=== PATIENT | male | born 1995 | race Caucasian/White ===

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

== ENCOUNTER 2017-09-09 13:34 | Emergency (ER) | payer BC, MEDICAID ==
[2017-09-09 14:50] LABS: ABS Basophils 0 10^3/ul (0-0.2); ABS Eosinophils 0 10^3/ul (0-0.6); ABS Lymphocytes 0.7 10^3/ul (1.0-4.8); ABS Monocytes 0.3 10^3/ul (0-0.8); ABS Neutrophils 4.9 10^3/ul (1.5-7.7); ABS Nucleated RBC 0 10^3/ul; Eosinophil % 0.4 % (0-6); Hematocrit 38 % (42-52); Hemoglobin 13.5 g/dl (14.0-18.0); Lymphocyte % 11.4 % (25-47); Mean Corpuscular HGB Conc 35 g/dl (31-36); Mean Corpuscular Hemoglobin 31 pg (27-31); Mean Corpuscular Volume 89 fL (80-94); Mean Platelet Volume 7.5 um3 (7.4-10.4); Nucleated Red Blood Cells % 0; Platelet Count 127 10^3/ul (150-450); Red Blood Count 4.32 10^6/ul (4.00-5.40); Red Cell Distribution Width 13 % (10.5-15); White Blood Count 5.9 10^3/ul (3.5-10.8)
[2017-09-09 15:05] LABS: EGFR Non-African American 84.5 (>60)
[2017-09-09 15:51] LABS: Urine Appearance Clear; Urine Blood Negative (Negative); Urine Color Yellow; Urine Ketones Negative (Negative); Urine Protein 1+(30 mg/dL) (Negative); Urine Specific Gravity 1.027 (1.010-1.030); Urine Urobilinogen Positive (Negative)
[2017-09-09 16:40] VITALS: BP 102/51
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
== END 2017-09-09 16:38 | disposition home or self-care (01) ==
LOC: ED 13:34
DX: R40.0 Somnolence (principal); F12.10 Cannabis abuse, uncomplicated; F17.210 Nicotine dependence, cigarettes, uncomplicated
CPT/HCPCS: 36415; 80053; 80307; 80320; 80329; 81003; 81015; 85025; 87086; 99283; G0480

== ENCOUNTER 2018-03-31 06:42 | Emergency (ER) | payer BC, MEDICAID ==
[2018-03-31] MEDS ORDERED: Bupivacaine 0.5%* 50 ML VIAL INJ ONE (07:06)
[2018-03-31] MEDS ORDERED: Acetaminophen TAB* 325 MG PO ONE (07:06)
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
[2018-03-31] MEDS ORDERED: Bupivacaine 0.5% W/EPI SDV* 30 ML VIAL ONE (07:22)
[2018-03-31] MEDS ORDERED: Benzocaine/Butamben/Tetracain (CETACAINE - SINGLE USE) 5 gm TOPICAL ONE (07:49)
[2018-03-31 09:23] VITALS: BP 158/79
== END 2018-03-31 09:23 | disposition home or self-care (01) ==
LOC: ED 06:42
DX: K02.9 Dental caries, unspecified (principal); K08.89 Other specified disorders of teeth and supporting structures; F17.210 Nicotine dependence, cigarettes, uncomplicated
CPT/HCPCS: 96374; 99282; A9270-GY

== ENCOUNTER 2019-01-30 19:29 | Emergency (ER) | payer OTHER ==
--- NOTE | 2019-01-30 20:00 | ED ---
Abdominal Pain/Male - HPI Summary HPI Summary: Patient is a 23 y/o M presenting to the ED for a chief complaint of LLQ abdominal pain. Patient is present with his mother and father. The abdominal pain began gradually at around 14:00 on 01/30/19. On triage, patient rates the pain as 10/10 in severity. Patient admits nausea, vomiting, constipation, and hematuria. Patient denies dysuria, diarrhea, or fever. Patient denies taking any OTC medications for the pain. Patients mother states the patient had a PSHx of urology surgeries and had scar tissue from the surgeries removed by Dr. Jose Luis Akers. Allergies noted. - History of Current Complaint Chief Complaint: EDAbdPain Stated Complaint: ABDOMINAL PAIN PER EMS Time Seen by Provider: 01/30/19 19:53 Hx Obtained From: Patient, Family/Merchandise Appraiser - Mother Onset/Duration: Sudden Onset Timing: Constant Severity Initially: Severe Severity Currently: Severe Pain Intensity: 10 Pain Scale Used: 0-10 Numeric Location: Discrete At: LLQ Radiates: No Aggravating Factor(s): Nothing Alleviating Factor(s): Nothing Associated Signs And Symptoms: Positive: Constipation, Urinary Symptoms - Positive hematuria, negative dysuria, Nausea, Vomiting. Negative: Fever, Diarrhea - Allergies/Home Medications Allergies/Adverse Reactions: Allergies Allergy/AdvReac Type Severity Reaction Status Date / Time bee stings Allergy Swelling Uncoded 05/12/15 15:04 seasonal allergies Allergy Eyes Uncoded 05/12/15 15:04 Itchy/Swollen/Red/Watery Home Medications: Home Medications Buprenorphine HCl/Naloxone HCl [Buprenor-Nalox 12-3 mg Sl Film] 1 each SL BID [History Confirmed 01/30/19] PMH/Surg Hx/FS Hx/Imm Hx Previously Healthy: Yes Endocrine/Hematology History: Denies: Hx Diabetes Cardiovascular History: Denies: Hx Hypercholesterolemia, Hx Hypertension Sensory History: Reports: Hx Contacts or Glasses - GLASSES Denies: Hx Legally Blind, Hx Deafness, Hx Hearing Aid Opthamlomology History: Reports: Hx Contacts or Glasses - GLASSES Denies: Hx Legally Blind EENT History: Denies: Hx Deafness Neurological History: Reports: Other Neuro Impairments/Disorders - per sister, developmentally delayed Psychiatric History: Reports: Hx Anxiety - untreated, Hx Depression - untreated , Hx Substance Abuse - opiates Denies: Hx Eating Disorder, Hx of Violent Episodes Against Others - Surgical History Surgical History: Yes Surgery Procedure, Year, and Place: 06/19/12 URETHRAL STRICTURE; x 3 in 2013 Hx Anesthesia Reactions: No Infectious Disease History: Yes Infectious Disease History: Denies: Traveled Outside the [place] in Last 30 Days - Family History Known Family History: Positive: Other - mom- anxiety, depression Negative: Diabetes - Social History Occupation: Student Lives: With Family Alcohol Use: None Hx Substance Use: No Substance Use Type: Reports: None Hx Tobacco Use: Yes Smoking Status (MU): Current Every Day Smoker Type: Cigarettes Amount Used/How Often: OCCASSIONAL CIG Length of Time of Smoking/Using Tobacco: 4 YRS Have You Smoked in the Last Year: Yes Review of Systems - ROS Summary Review of Systems Summary: Fluconazole 100 MG TAB* [Diflucan 100 MG TAB*] 100 mg PO DAILY #3 tab 05/21/16 [ Rx] Lidocaine 2% VISCOUS* [Xylocaine 2% Viscous*] 15 ml SWISH SPIT Q4H PRN #1 btl [Rx] Negative: Fever Positive: Abdominal Pain - LLQ, Vomiting, Nausea, Other - Positive constipation. Negative: Diarrhea Positive: hematuria. Negative: dysuria All Other Systems Reviewed And Are Negative: Yes Physical Exam - Summary Physical Exam Summary: General: Well-developed, thin MALE that appears in significant discomfort. HEENT: Normocephalic, Atraumatic. Eyes: Conjuctiva normal, PERRL. Ears: TMs within normal limits. Nares: (-) discharge, (-) erythema. Oropharynx: Clear, mucous membranes moist, (-) exudates. Neck: Soft, FROM, (-) lymphadenopathy, (-) thyromegaly, (-) JVD. Cardiovascular: Normal sinus rhythm, (-) murmur. Lungs: Clear to auscultation bilaterally (-) wheezes, (-) rales, (-) rhonchi. Abdomen: Soft, non-distended, (-) organomegaly, normal bowel sounds. Moderate LLQ pain, mild LUQ abdominal pain. Back: (-) CVA tenderness Extremities: No edema. Skin: Warm, dry, (-) rash. Neuro: Alert and oriented x3, no focal deficits. Psychiatric: Mood normal, affect normal. Mildly agitated. Triage Information Reviewed: Yes Vital Signs On Initial Exam: Initial Vitals Temp Pulse Resp BP Pulse Ox 97.9 F 90 18 137/83 98 01/30/19 19:43 01/30/19 19:43 01/30/19 19:43 01/30/19 19:43 01/30/19 19:43 Vital Signs Reviewed: Yes Procedures - Sedation Patient Received Moderate/Deep Sedation with Procedure: No Diagnostics - Vital Signs Vital Signs Temp Pulse Resp BP Pulse Ox 01/30/19 19:43 97.9 F 90 18 137/83 98 - Laboratory Result Diagrams: 01/30/19 20:38 01/30/19 20:38 Lab Statement: Any lab studies that have been ordered have been reviewed, and results considered in the medical decision making process. - CT Abdomen/Pelvis CT CT Interpretation Completed By: Radiologist Summary of CT Findings: Abdomen/Pelvis CT IMPRESSION: Left obstructive uropathy which is new since 03/28/2012 and extends into the pelvis. No definite ureteral, UVJ or bladder calculi are noted. Findings may reflect a recently passed stone or possibly poorly discerned distal ureteral punctate calculus. Reviewed by Dr. Turner. Re-Evaluation - Re-Evaluation First Re-Evaluation Time: 20:50 Change: Unchanged Comment: At 20:50, patient will be given Toradol 15 mg IV PUSH. Second Re-Evaluation Time: 00:22 Change: Unchanged Comment: At 00:22, patient states he has reflux. Will give a GI cocktail. Abdominal Pain Male Course/Dx - Course Course Of Treatment: 23-year-old male with left lower quadrant abdominal pain. patient has history of surgery on his ureters. Many years ago. He was given Zofran 4 mg IV, morphine 4 mg IV, ketorolac 15 mg IV PUSH in the emergency room.. At 20:50, patient will be given Toradol 15 mg IV PUSH. patient's symptoms improved significantly. His pain was admitted to 3. He was observed for a significant period of time with no worsening of his pain. patient did complain of some reflux and acid prior to discharge. Was given a GI cocktail with good relief. Patient discharged home to follow up with urology tomorrow. Follow-up sooner for any worsening symptoms. At 00:22, patient states he has reflux. Will give a GI cocktail. - Diagnoses Provider Diagnoses: LLQ abdominal pain, Hydronephrosis, Acid reflux Discharge ED - Sign-Out/Discharge Documenting (check all that apply): Patient Departure - Discharge - Discharge Plan Condition: Stable Disposition: HOME Patient Education Materials: Abdominal Pain (ED) Referrals: Supa Alan MD [Primary Care Provider] - Jose Luis Akers MD [Medical Doctor] - Additional Instructions: Please follow up with your primary care physician and Dr. Akers within three days. Please return to ED for any new or worsening symptoms. - Billing Disposition and Condition Condition: STABLE Disposition: Home - Attestation Statements Document Initiated by Scribe: Yes Documenting Scribe: Najma Ibarra Provider For Whom Scribe is Documenting (Include Credential): Arielle Turner MD Scribe Attestation: Najma Lopez, scribed for Arielle Turner MD on 01/31/19 at 0122. Scribe Documentation Reviewed: Yes Provider Attestation: The documentation as recorded by the Najma hawley accurately reflects the service I personally performed and the decisions made by Arielle penn MD Status of Scribe Document: Viewed
[2019-01-30] MEDS ORDERED: Ondansetron INJ* 2 MG/ML VIAL IV ONE (20:10)
[2019-01-30] MEDS ORDERED: Morphine 4 MG/ML VIAL (1 ml) 4 MG/ML VIAL IV ONE (20:10)
[2019-01-30 20:48] LABS: ABS Lymphocytes 0.6 10^3/ul (1.0-4.8); ABS Monocytes 0.5 10^3/ul (0-0.8); ABS Neutrophils 9.6 10^3/ul (1.5-7.7); Eosinophil % 0.1 %; Hematocrit 45 % (42-52); Hemoglobin 16.1 g/dL (14.0-18.0); Lymphocyte % 5.5 %; Mean Corpuscular HGB Conc 36 g/dL (31-36); Mean Corpuscular Hemoglobin 32 pg (27-31); Mean Corpuscular Volume 89 fL (80-94); Mean Platelet Volume 7.8 fL (7.4-10.4); Platelet Count 186 10^3/uL (150-450); Red Blood Count 5.05 10^6 /uL (4.18-5.48); Red Cell Distribution Width 14 % (10-15); White Blood Count 10.7 10^3/uL (3.5-10.8)
[2019-01-30] MEDS ORDERED: Ketorolac INJ* 30 MG/ML 1 ML VIAL IV PUSH ONE (20:50)
[2019-01-30 20:52] LABS: INR 1.06 (0.82-1.09)
[2019-01-30 20:56] LABS: Urine Appearance Clear; Urine Bacteria Absent (Absent); Urine Bilirubin Negative (Negative); Urine Blood 3+ (Negative); Urine Color Colorless; Urine Glucose Negative (Negative); Urine Ketones 1+ (Negative); Urine Nitrite Negative (Negative); Urine Protein Negative (Negative); Urine Red Blood Cell 3+(>10/hpf) (Absent); Urine Specific Gravity 1.008 (1.010-1.030); Urine Urobilinogen Negative (Negative); Urine White Blood Cell Absent (Absent)
[2019-01-30 21:03] LABS: ALT 11 U/L (7-52); AST 21 U/L (13-39); Albumin 5.3 g/dL (3.2-5.2); Albumin/Globulin Ratio 2.3 (1-3); Alkaline Phosphatase 91 U/L (34-104); Anion Gap 12 mmol/L (2-11); BUN/Creatinine Ratio 10.3 (8-20); Blood Urea Nitrogen 11 mg/dL (6-24); C Reactive Protein < 1.00 mg/L (<8.01); CO2 Carbon Dioxide 24 mmol/L (22-32); Calcium 10.3 mg/dL (8.6-10.3); Chloride 101 mmol/L (101-111); EGFR African American 105.6 (>60); EGFR Non-African American 87.2 (>60); Globulin 2.3 g/dL (2-4); Glucose 86 mg/dL (70-100); Potassium 3.6 mmol/L (3.5-5.0); Sodium 137 mmol/L (135-145); Total Protein 7.6 g/dL (6.4-8.9)
[2019-01-31] MEDS ORDERED: Lidocaine 2% VISCOUS* 15 ML UDC PO ONE (00:22)
[2019-01-31] MEDS ORDERED: Al Hydrox/Mg Hydrox/Simet LIQ* 30 ML UDC PO ONE (00:22)
[2019-01-31 00:49] VITALS: BP 118/98
[2019-01-31 00:53] LABS: Urine Benzodiazepine Screen None Detected (None Detect); Urine Opiates Screen None Detected (None Detect)
== END 2019-01-31 00:45 | disposition home or self-care (01) ==
LOC: ED 19:29
DX: R10.32 Left lower quadrant pain (principal); N13.30 Unspecified hydronephrosis; K21.9 Gastro-esophageal reflux disease without esophagitis; K59.00 Constipation, unspecified; F41.9 Anxiety disorder, unspecified; F17.210 Nicotine dependence, cigarettes, uncomplicated
CPT/HCPCS: 36415; 74176; 80053; 80307; 81003; 81015; 83605; 83690; 85025; 85610; 86140; 87040; 96374; 96375; 99282; A9270-GY; J1885; J2270; J2405

== ENCOUNTER 2019-02-27 11:29 | Emergency (ER) | payer OTHER ==
--- OUTSIDE RECORDS SUMMARY | 2019-02-27 11:41 | XMS REPORT | Continuity of Care Document ---
:1995 Author Organization [facility] Care Team Providers Name Role Phone UNKNOWN, UNKNOWN Primary Care Physician Unavailable Allergies and Intolerances No Allergy Data in the System Medications RxNorm Medication Dose Route Instructions Start Date End Date Status 20921025 Acetaminophen 325 MG 650 MG ORAL EVERY 4 HOURS 02/23/2019 Active Oral Tablet NEEDED as needed. [Tylenol] (ADMINISTER FOR MILD PAIN NOTE: DOSE REQUIRES 2 TABLETS) CIPROFLOXACIN 250 MG ORAL BID EVERY 12 Active HOURS (Please take with probiotic) 093160 Lactobacillus 1 cap oral orally daily (give Active rhamnosus GG with food [id number] UNT Oral (meal/snack)) Capsule METRONIDAZOLE 500 MG ORAL TID EVERY 8 HOURS Active (FLAGYL) (take w yogurt or probiotic) 421093 pantoprazole 40 MG 40 mg oral orally every Active Delayed Release Oral morning Tablet Medications At Time Of Discharge RxNorm Medication Dose Route Instructions Start Date End Date Status 20921025 Acetaminophen 325 MG 650 MG ORAL EVERY 4 HOURS 02/23/2019 Active Oral Tablet NEEDED as needed. [Tylenol] (ADMINISTER FOR MILD PAIN NOTE: DOSE REQUIRES 2 TABLETS) CIPROFLOXACIN 250 MG ORAL BID EVERY 12 Active HOURS (Please take with probiotic) 732165 Lactobacillus 1 cap oral orally daily (give Active rhamnosus GG with food [id number] UNT Oral (meal/snack)) Capsule METRONIDAZOLE 500 MG ORAL TID EVERY 8 HOURS Active (FLAGYL) (take w yogurt or probiotic) 528094 pantoprazole 40 MG 40 mg oral orally every Active Delayed Release Oral morning Tablet Problems No Data in the system Procedures No data in the system Results Laboratory Results Order: CBC DIFF Specimen Source: Body Site : Legend: (G,H) = High, (GG,HH,CH,#H) = Above High Threshold, (#,L) = Low, (##, CL,#L,LL) = Below Low Threshold, (C,CC,CA,#A,A) = Abnormal LOINC Test Result Flag Range Units Date 6690-2 1WBC # Bld Auto 8.6 4.8-10.8 K/uL 02/24/2019 04:55 98575-0 1RBC # Bld 3.89 L 4.60-6.20 M/uL 02/24/2019 04:55 718-7 1Hgb Bld-mCnc 12.4 L 13.5-18.0 gm/dL 02/24/2019 04:55 4544-3 1Hct VFr Bld Auto 35.8 L 41.0-53.0 % 02/24/2019 04:55 787-2 1MCV RBC Auto 92.0 80.0-100.0 fL 02/24/2019 04:55 84813-3 1MCHC RBC-mCnc 34.7 30.0-36.5 % 02/24/2019 04:55 82857-5 1MCH RBC Qn 32.0 27.0-34.0 pg 02/24/2019 04:55 45113-4 1RDW RBC 11.0 11.0-15.0 % 02/24/2019 04:55 777-3 1Platelet # Bld Auto 194 130-450 K/uL 02/24/2019 04:55 28799-0 1PMV Bld Auto 6.5 6.0-12.0 fL 02/24/2019 04:55 751-8 1Neutrophils # Bld Auto 82 H 37-80 % 02/24/2019 04:55 48907-8 1Lymphocytes NFr Bld 11 10-50 % 02/24/2019 04:55 5905-5 1Monocytes NFr Bld Auto 4 0-12 % 02/24/2019 04:55 45448-2 1Eosinophil # Bld 2 <=8 % 02/24/2019 04:55 704-7 1Basophils # Bld Auto 0 <=3 % 02/24/2019 04:55 52809-1 1Neutrophils # Bld 7.1 1.8-8.6 K/uL 02/24/2019 04:55 731-0 1Lymphocytes # Bld Auto 1.0 0.5-5.0 K/uL 02/24/2019 04:55 742-7 1Monocytes # Bld Auto 0.4 0.0-1.3 K/uL 02/24/2019 04:55 34955-6 1Eosinophil # Bld 0.2 0.0-0.9 K/uL 02/24/2019 04:55 704-7 1Basophils # Bld Auto 0.0 0.0-0.3 K/ul 02/24/2019 04:55 Performing Lab Footnotes:[facility] - [id number] - [address] [place] [address] BRANDAN VELÁSQUEZD1 Order: COMPREHENSIVE PANEL Specimen Source: Body Site: Legend: (G,H) = High, (GG,HH,CH,#H) = Above High Threshold, (#,L) = Low, (##,CL,#L,LL) = Below Low Threshold, (C,CC,CA,#A,A) = Abnormal LOINC Test Result Flag Range Units Date 2950-2 1Sodium SerPl-sCnc 140 136-145 mmol/L 02/24/2019 04:55 2823-3 1Potassium SerPl-sCnc 4.1 3.5-5.2 mmol/L 02/24/2019 04:55 5-0 1Chloride SerPl-sCnc 109 H 100-108 mmol/L 02/24/2019 04:55 8-9 1CO2 SerPl-sCnc 25 21-32 mmol/L 02/24/2019 04:55 2345-7 1Glucose SerPl-mCnc 88 70-100 mg/dL 02/24/2019 04:55 3094-0 1BUN SerPl-mCnc 14 7-21 mg/dL 02/24/2019 04:55 2160-0 1Creat SerPl-mCnc 0.8 0.6-1.3 mg/dL 02/24/2019 04:55 Interpretive Maricarmen: 1Normal Kidney Function or Mild Disease - GFR >OR= 60 Chronic Kidney Disease - GFR 15-59 Renal Failure - GFR < 15 GFR not calculated on patients under 18 years of age. Calculated (estimated) GFR is based on the MDRD Study equation, which assumes a steady state for creatinine. Estimated GFR may not be appropriate for medication dosing. 01759-3 1Ca-I SerPl-mCnc 8.0 L 8.5-10.8 mg/dL 02/24/2019 04:55 41219-4 1GFR/BSA.pred SerPl-ArVRat >60 02/24/2019 04:55 60919-1 1Bilirub Bld-mCnc 0.5 0.0-1.2 mg/dL 02/24/2019 04:55 2885-2 1Prot SerPl-mCnc 5.3 L 6.4-8.2 gm/dL 02/24/2019 04:55 1751-7 1Albumin SerPl-mCnc 3.0 L 3.4-4.8 gm/dL 02/24/2019 04:55 6768-6 1ALP SerPl-cCnc 92 40-150 U/L 02/24/2019 04:55 1742-6 1ALT SerPl-cCnc 28 0-55 U/L 02/24/2019 04:55 1920-8 1AST SerPl-cCnc 15 5-37 U/L 02/24/2019 04:55 Performing Lab Footnotes:[facility] - [id number] - [address] [place] [address] BRANDAN Hook NAGI Order: LACTIC ACID Specimen Source: Body Site: Legend: (G,H) = High, ( GG,HH,CH,#H) = Above High Threshold, (#,L) = Low, (##,CL,#L,LL) = Below Low Threshold, (C,CC,CA,#A,A) = Abnormal LOINC Test Result Flag Range Units Date 35421-5 1Lactate PlasV-sCnc 0.9 0.5-2.2 mmol/L 02/24/2019 04:55 Performing Lab Footnotes:[facility] - [id number] - [address] [place] [address] BRANDAN MCCARTHYCIOMD1 Order: MAGNESIUM Specimen Source: Body Site: Legend: (G,H) = High, (GG, HH,CH,#H) = Above High Threshold, (#,L) = Low, (##,CL,#L,LL) = Below Low Threshold, (C,CC,CA,#A,A) = Abnormal LOINC Test Result Flag Range Units Date 76475-3 1Magnesium SerPl-mCnc 1.8 1.7-2.6 mg/dL 02/24/2019 04:55 Performing Lab Footnotes:[facility] - [id number] - [address] [place] [address] BRANDAN ATKINSONOMD1 Order: LACTIC ACID Specimen Source: Body Site: Legend: (G,H) = High, ( GG,HH,CH,#H) = Above High Threshold, (#,L) = Low, (##,CL,#L,LL) = Below Low Threshold, (C,CC,CA,#A,A) = Abnormal LOINC Test Result Flag Range Units Date 1Lactate PlasV-sCnc 1.5 0.5-2.2 mmol/L 02/23/2019 18:36 Performing Lab Footnotes:[facility] - [id number] - [address] [place] [address] BRANDAN LAZAR Order: URINALYSIS ROUTINE Specimen Source: Body Site: Legend: (G,H) = High, (GG,HH,CH,#H) = Above High Threshold, (#,L) = Low, (##,CL,#L,LL) = Below Low Threshold, (C,CC,CA,#A,A) = Abnormal LOINC Test Result Flag Range Units Date 5778-6 1Color Ur YELLOW 02/23/2019 13:00 46626-6 1Turbidity Ur Ql CLEAR CLEAR 02/23/2019 13:00 5811-5 1Sp Gr Ur Strip 1.025 1.000-1.030 02/23/2019 13:00 5803-2 1pH Ur Strip 5.0 5.0-8.0 02/23/2019 13:00 59700-6 1WBC # Ur Strip NEGATIVE NEGATIVE 02/23/2019 13:00 5802-4 1Nitrite Ur Ql Strip NEGATIVE NEGATIVE 02/23/2019 13:00 5804-0 1Prot Ur Strip-mCnc TRACE ! NEGATIVE mg/dL 02/23/2019 13:00 5792-7 1Glucose Ur Strip-mCnc NORMAL NORMAL mg/dL 02/23/2019 13:00 5797-6 1Ketones Ur Strip-mCnc NEGATIVE NEGATIVE mg/dL 02/23/2019 13:00 51346-1 1Urobilinogen Ur NORMAL NORMAL mg/dL 02/23/2019 13:00 Strip-mCnc 60979-7 1Bilirub Ur Strip-mCnc NEGATIVE NEGATIVE mg/dL 02/23/2019 13:00 5794-3 1Hgb Ur Ql Strip TRACE ! NEGATIVE 02/23/2019 13:00 Performing Lab Footnotes:[facility] - [id number] - [address] [place] [address] BRANDAN VELÁSQUEZD1 Order: URINE MICROSCOPIC Specimen Source: Body Site: Legend: (G,H) = High, (GG,HH,CH,#H) = Above High Threshold, (#,L) = Low, (##,CL,#L,LL) = Below Low Threshold, (C,CC,CA,#A,A) = Abnormal LOINC Test Result Flag Range Units Date 1URINE MICROSCOPIC EXAM 5821-4 1WBC #/area UrnS HPF 0-2 0-2 /HPF 02/23/2019 13:00 5808-1 1RBC # UrnS HPF 0-2 ! NONE SEEN /HPF 02/23/2019 13:00 Interpretive Maricarmen: 1The [employer] has defined Microscopic Hematuria as 3 or more RBC per high powered field from a single positive urinalysis with microscopy. 42190-3 1Bacteria UrnS Ql Micro NONE SEEN NONE SEEN /HPF 02/23/2019 13: 00 5787-7 1Epi Cells #/area UrnS HPF RARE ! NONE SEEN /HPF 02/23/2019 13:00 Performing Lab Footnotes:[facility] - [id number] - [address] [place] [address] BRANDAN ATKINSONOMD1 Order: AMYLASE Specimen Source: Body Site: Legend: (G,H) = High, (GG,HH ,CH,#H) = Above High Threshold, (#,L) = Low, (##,CL,#L,LL) = Below Low Threshold , (C,CC,CA,#A,A) = Abnormal LOINC Test Result Flag Range Units Date 1798-08 1Amylase Ur-cCnc 53 25-125 U/L 02/23/2019 11:48 Performing Lab Footnotes:[facility] - [id number] [place] [address] BRANDAN ATKINSONOMAmber Order: C REACTIVE PROTEIN Specimen Source: Body Site: Legend: (G,H) = High, (GG,HH,CH,#H) = Above High Threshold, (#,L) = Low, (##,CL,#L,LL) = Below Low Threshold, (C,CC,CA,#A,A) = Abnormal LOINC Test Result Flag Range Units Date 1987-07 1CRP SerPl-mCnc 46.2 H <=5.0 mg/L 02/23/2019 11:48 Performing Lab Footnotes:[facility] - [id number] - [address] [place] [address] BRANDAN ATKINSONOMAmber Order: CBC DIFF Man Diff Specimen Source: Body Site: Legend: (G,H) = High, (GG,HH,CH,#H) = Above High Threshold, (#,L) = Low, (##,CL,#L,LL) = Below Low Threshold, (C,CC,CA,#A,A) = Abnormal LOINC Test Result Flag Range Units Date 6690-2 1WBC # Bld Auto 18.7 H 4.8-10.8 K/uL 02/23/2019 11:48 20385-9 1RBC # Bld 5.15 4.60-6.20 M/uL 02/23/2019 11:48 718-7 1Hgb Bld-mCnc 15.7 13.5-18.0 gm/dL 02/23/2019 11:48 4544-3 1Hct VFr Bld Auto 46.7 41.0-53.0 % 02/23/2019 11:48 787-2 1MCV RBC Auto 90.8 80.0-100.0 fL 02/23/2019 11:48 91887-1 1MCH RBC Qn 30.5 27.0-34.0 pg 02/23/2019 11:48 58834-9 1MCHC RBC-mCnc 33.6 30.0-36.5 % 02/23/2019 11:48 64013-9 1RDW RBC 11.2 11.0-15.0 % 02/23/2019 11:48 777-3 1Platelet # Bld Auto 297 130-450 K/uL 02/23/2019 11:48 71555-9 1PMV Bld Auto 6.1 6.0-12.0 fL 02/23/2019 11:48 1MANUAL DIFFERENTIAL 20651-7 1Neuts Seg NFr Bld 71 37-80 % 02/23/2019 11:48 80288-2 1Granulocytes NFr Bronch Manual 25 % 02/23/2019 11:48 14005-0 1Lymphocytes NFr Bld 1 L 10-50 % 02/23/2019 11:48 743-5 1Monocytes # Bld Manual 3 <=12 % 02/23/2019 11:48 Performing Lab Footnotes:[facility] - [id number] - [address] [place] [address] BRANDAN LAZAR Order: COMPREHENSIVE PANEL Specimen Source: Body Site: Legend: (G,H) = High, (GG,HH,CH,#H) = Above High Threshold, (#,L) = Low, (##,CL,#L,LL) = Below Low Threshold, (C,CC,CA,#A,A) = Abnormal LOINC Test Result Flag Range Units Date 2951-2 1Sodium SerPl-sCnc 144 136-145 mmol/L 02/23/2019 11:48 2823-3 1Potassium SerPl-sCnc 4.3 3.5-5.2 mmol/L 02/23/2019 11:48 2075-0 1Chloride SerPl-sCnc 103 100-108 mmol/L 02/23/2019 11:48 8-9 1CO2 SerPl-sCnc 26 21-32 mmol/L 02/23/2019 11:48 2345-7 1Glucose SerPl-mCnc 180 H 70-100 mg/dL 02/23/2019 11:48 3094-0 1BUN SerPl-mCnc 16 7-21 mg/dL 02/23/2019 11:48 2160-0 1Creat SerPl-mCnc 1.0 0.6-1.3 mg/dL 02/23/2019 11:48 Interpretive Maricarmen: 1Normal Kidney Function or Mild Disease - GFR >OR= 60 Chronic Kidney Disease - GFR 15-59 Renal Failure - GFR < 15 GFR not calculated on patients under 18 years of age. Calculated (estimated) GFR is based on the MDRD Study equation, which assumes a steady state for creatinine. Estimated GFR may not be appropriate for medication dosing. 85360-2 1Ca-I SerPl-mCnc 9.4 8.5-10.8 mg/dL 02/23/2019 11:48 83351-7 1GFR/BSA.pred SerPl-ArVRat >60 02/23/2019 11:48 07496-1 1Bilirub Bld-mCnc 0.7 0.0-1.2 mg/dL 02/23/2019 11:48 2885-2 1Prot SerPl-mCnc 7.7 6.4-8.2 gm/dL 02/23/2019 11:48 1751-7 1Albumin SerPl-mCnc 4.5 3.4-4.8 gm/dL 02/23/2019 11:48 6768-6 1ALP SerPl-cCnc 138 40-150 U/L 02/23/2019 11:48 1742-6 1ALT SerPl-cCnc 49 0-55 U/L 02/23/2019 11:48 1920-8 1AST SerPl-cCnc 18 5-37 U/L 02/23/2019 11:48 Performing Lab Footnotes:[facility] - [id number] - [address] [place] [address] BRANDAN Hook CHINAOMD1 Order: LIPASE Specimen Source: Body Site: Legend: (G,H) = High, (GG,HH, CH,#H) = Above High Threshold, (#,L) = Low, (##,CL,#L,LL) = Below Low Threshold , (C,CC,CA,#A,A) = Abnormal LOINC Test Result Flag Range Units Date 3040-3 1Lipase SerPl-cCnc 16 8-78 U/L 02/23/2019 11:48 Performing Lab Footnotes:[facility] - [id number] - [address] [place] [address] BRANDAN Hook CHINAOMD1 Order: Procalcitonin Specimen Source: Blood Body Site: Legend: (G,H) = High, (GG,HH,CH,#H) = Above High Threshold, (#,L) = Low, (##,CL,#L,LL) = Below Low Threshold, (C,CC,CA,#A,A) = Abnormal LOINC Test Result Flag Range Units Date 05514-0 1Procalcitonin SerPl IA-mCnc 2.52 ng/ml 02/23/2019 11:48 Performing Lab Footnotes:[facility] - [id number] - [address] [place] [address] BRANDAN Hook CHINAOMD1 Order: PT/INR Specimen Source: Body Site: Legend: (G,H) = High, (GG,HH, CH,#H) = Above High Threshold, (#,L) = Low, (##,CL,#L,LL) = Below Low Threshold , (C,CC,CA,#A,A) = Abnormal LOINC Test Result Flag Range Units Date 5902-2 1PT Time PPP 12.7 H 9.4-12.4 sec 02/23/2019 11:48 6301-6 1INR PPP 1.1 02/23/2019 11:48 Interpretive Maricarmen: 1 INR INTERPERTATION 2.0-3.0 THERAPEUTIC MONITORING 2.5-3.5 HEART VALVE REPLACEMENT Performing Lab Footnotes:[facility] - [id number] - [address] [place] [address] BRANDAN Hook CHINAOMAmber Order: PTT Specimen Source: Body Site: Legend: (G,H) = High, (GG,HH,CH, #H) = Above High Threshold, (#,L) = Low, (##,CL,#L,LL) = Below Low Threshold, (C ,CC,CA,#A,A) = Abnormal LOINC Test Result Flag Range Units Date 3173-2 1aPTT Time Bld 33.6 25.6-36.4 sec 02/23/2019 11:48 Performing Lab Footnotes:[facility] - [id number] - [address] [place] [address] BRANDAN Hook CHINAOMD1 Order: SEDRATE ESR Specimen Source: Body Site: Legend: (G,H) = High, ( GG,HH,CH,#H) = Above High Threshold, (#,L) = Low, (##,CL,#L,LL) = Below Low Threshold, (C,CC,CA,#A,A) = Abnormal LOINC Test Result Flag Range Units Date 83318-4 1ESR Bld Qn 9.0 0.0-15.0 mm/hr 02/23/2019 11:48 Performing Lab Footnotes:[facility] - [id number] - [address] [place] [address] BRANDAN MCCARTHYEMERSONOMD1 Microbiology Results w Susceptibilities Order: CULTURE URINE Specimen Source: Urine Body Site: UrineCultural Observations:Rare colonies of mixed growth consistent with skin debra [id number] Lab Footnotes:[facility] - [id number] - [address] [place] [address] BRANDAN VELÁSQUEZD1 Radiology Results Order: CHEST TWO VIEWSExam Completion Date:02/23/2019 14: 2:24 PM CHEST X-RAYS CLINICAL INFORMATION: -- NAUSEA WITH VOMITING, UNSPECIFIED COMPARISON: None. PROCEDURE: Frontal and lateral projections of the chest were obtained. FINDINGS: Tubes and Catheters: None. Central Airways: Normal. Lungs: Normal. Pleura/Pleural space: Normal. Heart and Mediastinum: Normal. Additional Findings: No acute or aggressive osseous changes noted. IMPRESSION : No acute cardiopulmonary disease. END OF IMPRESSION [facility] submits Radiology results to [facility] and [facility] then provides those same results to [facility]. All results are available to [facility] and [facility] provider portal users. [facility] images are available to [facility] only. [facility] DICOM images are not available to the [facility] provider portal users. There is no current [facility] cross-[facility] functionality allowing images to be available through the [facility] to [facility] connectivity. Electronically signed By: Angel Roca M.D. Read By: ANGEL ROCA Date: 02/23/2019 14:28Order: CT-ABD PELVIS WITH IV CONTRASTExam Completion Date:02/23/2019 11: 1:[address] ABDOMEN AND PELVIS WITH CONTRAST CLINICAL INFORMATION: UNSPECIFIED ABDOMINAL PAIN,Diffuse abdominal pain-? Diverticulitis? Appendicitis -- UNSPECIFIED ABDOMINAL PAIN COMPARISON: None. PROCEDURE: Contiguous images were obtained through the abdomen and pelvis with intravenous contrast. Automated exposure control, adjustment of the mA and/or kV according to patientsize, and/or iterative reconstruction techniques were utilized for radiation dose optimization. Amount and type of pwejhtge50 cc Isovue-300. Lack of intraperitoneal fat makes interpretation of the imaging technically difficult. FINDINGS: Chest Base: Patchy nodular consolidation noted in the leftlower lobe. Liver/Biliary Tract: Unremarkable. Pancreas: Unremarkable. Spleen: Unremarkable. Adrenals: Unremarkable. Kidneys and Collecting Systems: Unremarkable. Lymph Nodes: Unremarkable. Vessels: Unremarkable for age. GI Tract/Mesentery and Peritoneal Cavity: Mild circumferential thickening of some junctional loops noted. The significance of this is uncertain. Otherwise the unprepared small and large bowel is unremarkable. No evidence of obstruction. The appendix is not clearly seen in any planes due to lack of intraperitoneal fat. No ancillary findings to suggest acute appendicitis including inflammatory stranding of the fat or free fluid. No evidence of perforation ordiscrete collections. The stomach is moderately distended and fluid-filled. Prostate Glands/Seminal Vesicles: Unremarkable. Bladder: Unremarkable. Soft Tissues/ Musculoskeletal: No acute abnormality. IMPRESSION: Technically difficult study to interpret. The appendix has not been visualized. No ancillary findings however to suggest an acute appendicitis. Mildly thickened jejunal bowel loops are a nonspecific finding and of uncertain etiology. Moderate gastric distention of uncertain cause. Imaging appearances in the left lower lobe of the lung raise the possibility of an infectiousprocess. Aspiration should be considered in the appropriate setting. END OF IMPRESSION [facility] submits Radiology results to [facility] and [facility] then provides those same results to [facility]. All results are available to [facility] and [facility] provider portal users. [facility] DICOM images are available to the [facility] provider portal users only. [facility] DICOM images are not available to the [facility] provider portal users. There is no current [facility] cross-[facility] functionality allowing imagesto be available through the [facility] to [facility] connectivity. Electronically signed By: Dale Carrillo M.D. Read By: DALE CARRILLO Date: 02/23/2019 13:48 Social History Code Code System Social History Description Dates Observed Observation 701380506 SNOMED CT Current Smoking Current every day Status smoker M AdministrativeGender Sex Assigned At Male Vital Signs Code Code System [facility]als [facility] Date [facility] Temperature 98.2 [degF] 02/25/2019 8865-8 LOINC Pulse Rate 64 {beats}/min 02/25/2019 9279-1 LOINC Respiratory Rate 16 /min 02/25/2019 87626-6 LOINC O2% BldC Oximetry 99 % 02/25/2019 8480-6 LOINC BP Systolic 118 mm[Hg] 02/25/2019 8462-4 LOINC BP Diastolic 52 mm[Hg] 02/25/2019 8302-2 LOINC Height 70 [in_i] 02/23/2019 65283-2 LOINC Weight 58.97 kg 02/23/2019 3140-1 LOINC Body surface area Derived from formula 1.74 m2 02/23/2019 48487-2 LOINC BMI (Body Mass Index) 18.8 kg/m2 02/23/2019 Goals Section No data in the system Health Concerns No data in the systemEncounter Diagnosis Date Code Code System Diagnosis Status 74978609 SNOMED-CT Abdominal pain Active Advance Directives [facility] Directive Type Effective Date Fire Protection Engineer Notes Supporting Document Name Address Phone No Directive 02/23/2019 Not Specified Not Specified Not Specified Cassia Mathew No Type specified 9:24:00 PM [facility]IV[facility] Directive Type Effective Date Fire Protection Engineer Notes Supporting Document Name Address Phone No Directive Type 02/23/2019 9:24:00 Not Specified Not Specified Not Specified None No specified PM Encounters Encounter Diagnosis Location Date Abdominal pain [facility] 02/23/2019 Family History Family history not obtained Functional Status Code Functional Condition Code System Date Status Shower SNOMED CT 02/23/2019 Active Self care SNOMED CT 02/23/2019 Active Bathroom privileges SNOMED CT 02/24/[address] 02/25/[address] 02/23/[address] 02/25/[address] 02/25/[address] 02/25/2019 Active 4 - manage pain and encourage activity as SNOMED CT 02/25/2019 Active tolerated 3 - encourage active rom SNOMED CT 02/24/[address] feed SNOM[address] CT 02/24/2019 Active 049501093 Able to wash self SNOMED CT 02/24/2019 Active 730695408 Ability to verbalize understanding SNOMED CT 02/25/2019 Active (observable entity) Immunizations No data in the system Medical Equipment No data in the system Mental Status Code Cognitive Condition Code System Date Status Mild distress SNOMED CT 02/23/2019 Active 882512014 No speech problem (situation) SNOMED CT 02/23/2019 Active 398859180 Orientated SNOMED CT 02/23/2019 Active [address]362030 Orientated SNOMED CT 02/23/2019 Active 525019705 Mentally alert SNOMED CT 02/23/2019 Active 551575371 Oriented to time SNOMED CT 02/23/2019 Active 874331586 Oriented to time (finding) SNOMED CT 02/23/2019 Active [address] Orient[address] to [address] SNOMED CT 02/23/2019 Active [address] Oriented to place (finding) SNOMED CT 02/23/2019 Active 293814370 Oriented to person SNOMED CT 02/23/2019 Active Assessment and Plan Assessments No data in the systemPlan Of Treatment No data in the systemPending Tests No data in the system Hospital Discharge Instructions Discharge InstructionsDischarge DestinationDischarge to HomeDischarge Diagnosisintractable N/V likely 2/2 THC vs mild jejuitisFollow Up Appointmentcall Dr Hollingsworth office ([phone]) for f/u within 1 wk with repeat lab work (cbc, cmp, mag) with referral for substance abuseDiet at Homeregular dietActivityAs ToleratedincreaseSpecial Instructionsfinish cipro & amp; flagyl course o2 not neededMedicationsNew Medication List Provided AbovePatients HOME MEDICATIONS returned to patient upon dischargeN/A Reason for Visit Reason for Visit Leukocytosis
[2019-02-27 12:29] VITALS: BP 117/61
--- NOTE | 2019-02-27 12:39 | UC ---
Hand/Wrist HPI - HPI Summary HPI Summary: right hand pain x 1 day injury to his right hand punched the was with his right hand pain and swelling of the hand , limited ROM - History Of Current Complaint Chief Complaint: UCUpperExtremity Stated Complaint: R HAND INJ Time Seen by Provider: 02/27/19 12:32 Hx Obtained From: Patient Onset/Duration: Sudden Onset, Lasting Days - 1, Still Present Severity Initially: Moderate Severity Currently: Moderate Pain Intensity: 7 Character Of Pain: Dull, Aching Aggravating Factor(s): Movement, Lifting, Flexion, Extension Alleviating Factor(s): Rest, Ice Associated Signs And Symptoms: Positive: Swelling, Weakness. Negative: Redness , Bruising, Fever, Numbness/Tingling - Allergies/Home Medications Allergies/Adverse Reactions: Allergies Allergy/AdvReac Type Severity Reaction Status Date / Time bee stings Allergy Swelling Uncoded 02/27/19 12:23 seasonal allergies Allergy Eyes Uncoded 02/27/19 12:23 Itchy/Swollen/Red/Watery PMH/Surg Hx/FS Hx/Imm Hx Previously Healthy: Yes - Surgical History Surgical History: Yes Surgery Procedure, Year, and Place: 06/19/12 URETHRAL STRICTURE; x 3 in 2012 - Family History Known Family History: Positive: Other - mom- anxiety, depression Negative: Diabetes - Social History Alcohol Use: Occasionally Substance Use Type: Marijuana 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; recovering addict Smoking Status (MU): Current Every Day Smoker Type: Cigarettes Amount Used/How Often: OCCASSIONAL CIG Length of Time of Smoking/Using Tobacco: 4 YRS Have You Smoked in the Last Year: Yes - Immunization History Vaccination Up to Date: Yes Review of Systems All Other Systems Reviewed And Are Negative: Yes Constitutional: Positive: Negative Skin: Positive: Negative Eyes: Positive: Negative ENT: Positive: Negative Is Patient Immunocompromised?: No Physical Exam Triage Information Reviewed: Yes Appearance: Well-Appearing, No Pain Distress, Well-Nourished Vital Signs: Initial Vital Signs Temp 98.3 F 02/27/19 12:25 Pulse 88 02/27/19 12:25 Resp 20 02/27/19 12:25 BP 117/61 02/27/19 12:25 Pulse Ox 98 02/27/19 12:25 Vital Signs Reviewed: Yes Eye Exam: Normal Eyes: Positive: Conjunctiva Clear ENT: Positive: Normal ENT inspection, Hearing grossly normal, Pharynx normal Neck exam: Normal Respiratory: Positive: Chest non-tender, Lungs clear, Normal breath sounds Cardiovascular: Positive: RRR, No Murmur, Pulses Normal Musculoskeletal: Positive: Other: - right hand : + swelling, + tenderness 3,4,5 metacarpal , limited ROM , limited strength Diagnostics - Radiology No standard instances Radiology Interpretation Completed By: Radiologist Summary of Radiographic Findings: xray right hand : IMPRESSION: No fracture of the right hand is noted. Hand/Wrist Course/Dx - Differential Dx/Diagnosis Provider Diagnosis: Contusion of right hand Discharge ED - Sign-Out/Discharge Documenting (check all that apply): Patient Departure All imaging exams completed and their final reports reviewed: Yes - Discharge Plan Condition: Stable Disposition: HOME Patient Education Materials: Contusion in Adults (ED) Referrals: Supa Alan MD [Primary Care Provider] - 7 Days Additional Instructions: no fracture noted on the xray cont. with rest, ice, ibuprofen as needed for pain - Billing Disposition and Condition Condition: STABLE Disposition: Home
== END 2019-02-27 13:11 | disposition home or self-care (01) ==
LOC: UCCORT 11:29
DX: S60.221A Contusion of right hand, initial encounter (principal); F17.210 Nicotine dependence, cigarettes, uncomplicated; Z91.030 Bee allergy status; Z91.09 Other allergy status, other than to drugs and biological substances; X58.XXXA Exposure to other specified factors, initial encounter; Y92.9 Unspecified place or not applicable
CPT/HCPCS: 99211; G0463

== ENCOUNTER 2019-07-11 17:18 | Emergency (ER) | payer OTHER ==
[2019-07-11 20:21] LABS: ABS Eosinophils 0.1 10^3/ul (0-0.6); ABS Monocytes 0.5 10^3/ul (0-0.8); ABS Neutrophils 6.5 10^3/ul (1.5-7.7); Eosinophil % 0.8 %; Hematocrit 40 % (42-52); Hemoglobin 14.5 g/dL (14.0-18.0); Lymphocyte % 12.5 %; Mean Corpuscular HGB Conc 36 g/dL (31-36); Mean Corpuscular Hemoglobin 31 pg (27-31); Mean Corpuscular Volume 87 fL (80-94); Platelet Count 192 10^3/uL (150-450); Red Blood Count 4.63 10^6 /uL (4.18-5.48); Red Cell Distribution Width 13 % (10-15); White Blood Count 8.1 10^3/uL (3.5-10.8)
[2019-07-11 20:32] LABS: ALT 21 U/L (7-52); AST 57 U/L (13-39); Albumin/Globulin Ratio 2.3 (1-3); Alkaline Phosphatase 87 U/L (34-104); Anion Gap 5 mmol/L (2-11); BUN/Creatinine Ratio 20.4 (8-20); Blood Urea Nitrogen 22 mg/dL (6-24); C Reactive Protein < 1.00 mg/L (<8.01); CO2 Carbon Dioxide 30 mmol/L (22-32); Calcium 9.5 mg/dL (8.6-10.3); Chloride 104 mmol/L (101-111); EGFR African American 103.5 (>60); EGFR Non-African American 85.5 (>60); Globulin 2.2 g/dL (2-4); Glucose 94 mg/dL (70-100); Potassium 3.9 mmol/L (3.5-5.0); Sodium 139 mmol/L (135-145); Total Protein 7.2 g/dL (6.4-8.9)
--- NOTE | 2019-07-11 21:55 | ED ---
GI/ HPI - HPI Summary HPI Summary: 24 year old male presents with abd pain today. States pain is in his right lower abdomen moved to his right groin. He states the pain has since improved. He has minimal pain at this time. He states the pain is moving from his right to his left. Denies any nausea. No diarrhea constipation. No penile discharge. No urinary symptoms. He denies any flank pain. States this had this pain before and was colitis. No rash. No medical conditions. No previous surgeries. - History of Current Complaint Chief Complaint: EDAbdPain Time Seen by Provider: 07/11/19 21:23 Stated Complaint: ABD PAIN PER PT Pain Intensity: 3 - Allergy/Home Medications Allergies/Adverse Reactions: Allergies Allergy/AdvReac Type Severity Reaction Status Date / Time bee stings Allergy Swelling Uncoded 02/27/19 12:23 seasonal allergies Allergy Eyes Uncoded 02/27/19 12:23 Itchy/Swollen/Red/Watery PMH/Surg Hx/FS Hx/Imm Hx Endocrine/Hematology History: Denies: Hx Diabetes Cardiovascular History: Denies: Hx Hypercholesterolemia, Hx Hypertension Sensory History: Reports: Hx Contacts or Glasses - GLASSES Denies: Hx Legally Blind, Hx Deafness, Hx Hearing Aid Opthamlomology History: Reports: Hx Contacts or Glasses - GLASSES Denies: Hx Legally Blind Neurological History: Reports: Other Neuro Impairments/Disorders - per sister, developmentally delayed Psychiatric History: Reports: Hx Anxiety - untreated, Hx Depression - untreated , Hx Substance Abuse - opiates Denies: Hx Eating Disorder, Hx of Violent Episodes Against Others - Surgical History Surgery Procedure, Year, and Place: 06/19/12 URETHRAL STRICTURE; x 3 in 2012 Hx Anesthesia Reactions: No Infectious Disease History: No Infectious Disease History: Denies: Traveled Outside the [place] in Last 30 Days - Family History Known Family History: Positive: Other - mom- anxiety, depression Negative: Diabetes - Social History Alcohol Use: Occasionally Hx Substance Use: No Substance Use Type: Reports: Marijuana 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; recovering addict Hx Tobacco Use: Yes Smoking Status (MU): Current Every Day Smoker Type: Cigarettes Amount Used/How Often: OCCASSIONAL CIG Length of Time of Smoking/Using Tobacco: 4 YRS Have You Smoked in the Last Year: Yes Review of Systems Negative: Fever Negative: Chest Pain Negative: Shortness Of Breath Positive: Abdominal Pain All Other Systems Reviewed And Are Negative: Yes Physical Exam Triage Information Reviewed: Yes Vital Signs On Initial Exam: Initial Vitals Temp Pulse Resp BP Pulse Ox 97.8 F 92 18 133/78 98 07/11/19 17:18 07/11/19 17:18 07/11/19 17:18 07/11/19 17:18 07/11/19 17:18 Vital Signs Reviewed: Yes Appearance: Positive: Well-Appearing Skin: Positive: Warm, Dry Head/Face: Positive: Normal Head/Face Inspection Eyes: Positive: Normal, Conjunctiva Clear ENT: Positive: Pharynx normal Respiratory/Lung Sounds: Positive: Clear to Auscultation, Breath Sounds Present Cardiovascular: Positive: Normal, RRR Abdomen Description: Positive: Nontender, Soft, Other: - tenderness right inguinal area no hernia felt Bowel Sounds: Positive: Present Musculoskeletal: Positive: Normal Neurological: Positive: Normal Psychiatric: Positive: Normal Procedures - Sedation Patient Received Moderate/Deep Sedation with Procedure: No Diagnostics - Vital Signs Vital Signs Temp Pulse Resp BP Pulse Ox 07/11/19 21:33 96.1 F 16 07/11/19 18:45 98.1 F 90 18 111/64 95 07/11/19 17:18 97.8 F 92 18 133/78 98 - Laboratory Lab Results: Lab Results 07/11/19 07/11/19 Range/Units 19:53 19:53 WBC 8.1 (3.5-10.8) 10^3/uL RBC 4.63 (4.18-5.48) 10^6 /uL Hgb 14.5 (14.0-18.0) g/dL Hct 40 L (42-52) % MCV 87 (80-94) fL MCH 31 (27-31) pg MCHC 36 (31-36) g/dL RDW 13 (10-15) % Plt Count 192 (150-450) 10^3/uL MPV 8.0 (7.4-10.4) fL Neut % (Auto) 80.8 % Lymph % (Auto) 12.5 % Dent % (Auto) 5.6 % Eos % (Auto) 0.8 % Baso % (Auto) 0.3 % Absolute Neuts (auto) 6.5 (1.5-7.7) 10^3/ul Absolute Lymphs (auto) 1.0 (1.0-4.8) 10^3/ul Absolute Monos (auto) 0.5 (0-0.8) 10^3/ul Absolute Eos (auto) 0.1 (0-0.6) 10^3/ul Absolute Basos (auto) 0.0 (0-0.2) 10^3/ul Absolute Nucleated RBC 0.0 10^3/ul Nucleated RBC % 0.0 Sodium 139 (135-145) mmol/L Potassium 3.9 (3.5-5.0) mmol/L Chloride 104 (101-111) mmol/L Carbon Dioxide 30 (22-32) mmol/L Anion Gap 5 (2-11) mmol/L BUN 22 (6-24) mg/dL Creatinine 1.08 (0.67-1.17) mg/dL Est GFR ( Amer) 103.5 (>60) Est GFR (Non-Af Amer) 85.5 (>60) BUN/Creatinine Ratio 20.4 H (8-20) Glucose 94 (70-100) mg/dL Calcium 9.5 (8.6-10.3) mg/dL Total Bilirubin 0.90 (0.2-1.0) mg/dL AST 57 H (13-39) U/L ALT 21 (7-52) U/L Alkaline Phosphatase 87 (34-104) U/L C-Reactive Protein < 1.00 (<8.01) mg/L Total Protein 7.2 (6.4-8.9) g/dL Albumin 5.0 (3.2-5.2) g/dL Globulin 2.2 (2-4) g/dL Albumin/Globulin Ratio 2.3 (1-3) Lipase 18 (11.0-82.0) U/L Result Diagrams: 07/11/19 19:53 07/11/19 19:53 Lab Statement: Any lab studies that have been ordered have been reviewed, and results considered in the medical decision making process. - Ultrasound No standard instances Ultrasound Interpretation Completed By: Radiologist Summary of Ultrasound Findings: IMPRESSION: No testicular torsion, orchitis or epididymitis. GIGU Course/Dx - Course Course Of Treatment: 24 year old male presents with abd pain today. States pain is in his right lower abdomen moved to his right groin. He states the pain has since improved. He has minimal pain at this time. He states the pain is moving from his right to his left. Denies any nausea. No diarrhea constipation. No penile discharge. No urinary symptoms. He denies any flank pain. States this had this pain before and was colitis. No rash. No medical conditions. No previous surgeries. On exam nontender abdomen. Does have some right inguinal tenderness but no hernia noted. Ultrasound testicular normal. Labs within normal limits. Patient states though when points pain is in the right lower quadrant but is nontender there. told patient if pain returns to RLQ to return. urine shows hematuria so could be kidney stone although has nontender flanks at this time. will have follow up with primary. Patient understands and agrees the plan. - Diagnoses Differential Diagnoses - Male: Appendicitis, Testicular Torsion, Urinary Tract Infection Provider Diagnoses: Abdominal pain - Critical Care Time Critical Care Statement: Critical care time is provided exclusive of any time spent performing procedures. Discharge ED - Sign-Out/Discharge Documenting (check all that apply): Patient Departure - Discharge Plan Condition: Good Disposition: HOME Patient Education Materials: Abdominal Pain (ED) Referrals: Supa Alan MD [Primary Care Provider] - Additional Instructions: If pain persists or worsen in right lower quadrant return to ED or develop fever or any new or worsening symptoms follow up with primary within 5 days - Billing Disposition and Condition Condition: GOOD Disposition: Home
[2019-07-11 21:58] LABS: Urine Appearance Cloudy; Urine Bacteria Absent (Absent); Urine Bilirubin Negative (Negative); Urine Blood 3+ (Negative); Urine Color Yellow; Urine Glucose Negative (Negative); Urine Ketones Negative (Negative); Urine Nitrite Negative (Negative); Urine Protein Negative (Negative); Urine Red Blood Cell 3+(>10/hpf) (Absent); Urine Specific Gravity 1.025 (1.010-1.030); Urine Squamous Epithelial Cell Present (Absent); Urine Urobilinogen Negative (Negative); Urine White Blood Cell Trace(0-5/hpf) (Absent)
[2019-07-11 22:01] VITALS: BP 102/71
== END 2019-07-11 22:03 | disposition home or self-care (01) ==
LOC: ED 17:18
DX: R10.9 Unspecified abdominal pain (principal); F17.210 Nicotine dependence, cigarettes, uncomplicated
CPT/HCPCS: 36415; 76870; 80053; 81003; 81015; 83690; 85025; 86140; 87086; 99282